=== PATIENT | male | born 2000 | race Caucasian/White ===

== ENCOUNTER 2020-12-28 05:01 | Emergency (ER) | payer BC ==
--- NOTE | 2020-12-28 10:36 | RAD ---
2 VIEWS LEFT MIDDLE FINGER: Date: 12/28/2020 HISTORY: Third finger injury playing football 1-1/2 weeks ago with fracture. FINDINGS: Two views of the left middle finger shows a mallet fracture of the distal phalanx of the finger. A st ack splint is in place along the dorsal aspect. There is good alignment of the DIP joint without sign ificant flexion. Mild surrounding soft tissue swelling is seen. IMPRESSION: Mallet fracture of the distal phalanx. POS: EAA
== END 2020-12-28 06:56 | disposition home or self-care (01) ==
LOC: ERS 05:01
DX: S62.633A Displaced fracture of distal phalanx of left middle finger, initial encounter for closed fracture (principal)

== ENCOUNTER 2021-01-09 15:25 | Outpatient (CLI) | payer BC ==
[2021-01-09 18:47] LABS: Hemoglobin 15.8 g/dL (13.5-17.5); Mean Corpuscular HGB CONC 33.5 g/dL (32.0-36.0); Mean Corpuscular Hemoglobin 31.4 pg (27.0-33.0); Mean Corpuscular Volume 93.6 fl (81.2-95.1); Mean Platelet Volume 11.6 fl (7.4-10.4); Platelet Count 210 10x3/uL (150-450); RBC Distribution Width 12.5 % (11.5-14.5); Red Blood Cell (RBC) Count 5.03 10x6/uL (4.32-5.72); White Blood Cell (WBC) Count 6.1 10x3/uL (3.5-10.5)
== END 2021-01-09 15:26 | disposition home or self-care (01) ==
LOC: LABBT 15:25
PROVIDERS: ATTEND Orthopaedic Surgery Hand Surgery
DX: Z01.812 Encounter for preprocedural laboratory examination (principal); S62.623A Displaced fracture of middle phalanx of left middle finger, initial encounter for closed fracture
CPT/HCPCS: 85027

== ENCOUNTER 2021-01-13 13:34 | Day surgery (SDC) | payer BC ==
[2021-01-10 15:10] VITALS: BMI 24.3
[~2021-01-13 13:34] MED LIST: Dexamethasone 20 MG/5 ML VIAL ONE; Ketorolac Tromethamine 30 MG/ML VIAL ONE; Lidocaine 1% PF 5 ML VIAL ONE; Ondansetron PF 4 MG/2 ML Vial ONE; PROPOFOL 200 MG/20 ML VIAL ONE; ePHEDrine 50 MG/ML VIAL ONE
[2021-01-13] MEDS ORDERED: Fentanyl 100 MCG/2 ML VIAL ONE ×2 (14:41→14:53)
[2021-01-13] MEDS ORDERED: Sodium Chloride 0.9% 10 ML ONE (14:51)
[2021-01-13] MEDS ORDERED: Bacitracin Zinc Ointment 30 gm TUBE ONE (14:51)
[2021-01-13] MEDS ORDERED: Bupivacaine PF 0.5% 30 ML VIAL ONE (14:51)
[2021-01-13] MEDS ORDERED: Clindamycin/D5W 900 mg/50 ml Premix Bag ONE (14:56)
[2021-01-13] MEDS ORDERED: Meperidine HCl/PF 25 MG/ML VIAL ONE (17:30)
--- NOTE | 2021-01-13 17:59 | RAD ---
FINGERS LEFT HAND: Indications: ORIF FINDINGS: Nine fluoroscopic images presented from the OR. Pins transfix the DIP joint of the imaged phalanx POS: AGW
--- NOTE | 2021-01-13 20:58 | OP ---
DATE OF PROCEDURE: 01/13/2021 PREOPERATIVE DIAGNOSES: 1. Left displaced mallet fracture now approximately four weeks old. 2. Left DIP joint subluxation prevented closed reduction in the clinic. POSTOPERATIVE DIAGNOSES: 1. Left displaced mallet fracture now approximately four weeks old. 2. Left DIP joint subluxation prevented closed reduction in the clinic. INDICATIONS: Closed reduction failure after initially successful closed reduction, had second displacement when splint was removed and could not be reduced closed. FINDINGS: 1. About 2 mm layer of callus formation blocking reduction/early fibrous tissue within this intra-articular fracture with over 50% articular surface involvement. Although fragment was only approximately 1.5 to 2 mm wide. 2. DIP joint subluxation, approximately 60%. PROCEDURES PERFORMED: 1. Open reduction and internal fixation distal phalangeal joint subluxation. 2. Open reduction and internal fixation, left displaced mallet fracture/base of the distal phalanx intra-articular fracture. 3. C-arm supervision. ESTIMATED BLOOD LOSS: 10 mL. TOURNIQUET TIME: 64 minutes. Again the findings include DIP joint volar subluxation approximately 60% and left base of the distal phalanx fibrous/early callus formation displaced prevented blocking reduction. DESCRIPTION OF PROCEDURE: After successful general endotracheal anesthesia, the limb was prepped and draped. The patient had been given 10 mL 0.5% Marcaine metacarpophalangeal level block prior to instituting the prepping and draping. We then exsanguinated the limb, inflated tourniquet to 250 mmHg pressure. C-arm was brought into the field after we made an S type incision over the dorsal skin and extended into the level of the nail bed base as well as a 1 cm proximal. We used the C-arm to help identify the fragment and to make an incision in the extensor mechanism least 1 to 1.5 mm distal to this, so that the tendon would always be attached to the fragment. Once we did this, we elevated the fragment, and it was here that we saw the fibrous tissue occupied all the entire space with the bone could be reduced blocking reduction. We gently curetted the base of the distal phalanx, gently curetted the fragment without comminuting it, and then we pinned the joint reducing the 60% subluxation to the anatomic cox P3 and P2 articulation levels in the sagittal plane and frontal plane. K-wire was a 4.5 to be used to pin the joint and at this point, the fragment was almost reduced. We then depressed it approximately 1 mm and nearly anatomical position. We placed 2 K-wires 0.35 across the fragment each about 4 mm apart in a crossing pattern to achieve some compression. Now clinically there was no fragment visible, that was not touching bone, there was no step-off at the joint, and we felt we had achieved good reduction and maintained with the K-wires. We now cut the K-wires off the level of skin for the wire transfixing joint in the level of the extensor mechanism for the 2 holes in the fragment. We then repaired the extensor mechanism circumferentially from proximal radial to distal ulna using an interrupted [id number] with the Prolene. They were all buried. The patient then had the hemostasis obtained, we closed the incision with interrupted 4-0 nylon simple pattern. Radiographs confirmed the excellent reduction in all views to include the initial reduction with just and K-wire. He left the operating room without evidence of anesthetic or operative complication. Job ID: [id number]
== END 2021-01-13 19:08 | disposition home or self-care (01) ==
LOC: SDC 13:34
PROVIDERS: ATTEND Orthopaedic Surgery Hand Surgery
PROC: 0PSV04Z Reposition Left Finger Phalanx with Internal Fixation Device, Open Approach (ICD-10-PCS; principal; 2021-01-13)
DX: S62.633A Displaced fracture of distal phalanx of left middle finger, initial encounter for closed fracture (principal); Z88.0 Allergy status to penicillin; Z88.2 Allergy status to sulfonamides
CPT/HCPCS: 76000; C1713; J1100; J1885; J2175; J2405; J2704; J3010; J3490; S0020